=== PATIENT | male | born 1960 | race Caucasian/White ===

== ENCOUNTER 2020-04-13 18:31 | Outpatient (REF) | payer BC, SELFPAY ==
[2020-04-13 21:30] LABS: Hemoglobin A1C 5.3 % (<5.7)
[2020-04-13 21:34] LABS: ALT 35 U/L (16-63); AST 20 U/L (15-37); Alkaline Phosphatase 49 U/L (46-116); Anion Gap 10.4 mmol/L (3-11); BUN 20 mg/dL (7-18); Bilirubin, Total 1.2 mg/dL (0.2-1.0); CO2 27.6 mmol/L (21.0-32.0); Calcium 8.9 mg/dL (8.5-10.1); Calculated LDL 170 mg/dL (<100); Chloride 105 mmol/L (98-107); Cholesterol 257 mg/dL (<200); Glucose 96 mg/dL (74-106); HDL Cholesterol 56 mg/dL (40-60); Potassium 3.9 mmol/L (3.5-5.1); Sodium 143 mmol/L (136-145); Total Protein 7.3 g/dL (6.4-8.2); Triglyceride 157 mg/dL (<150)
[2020-04-14 17:15] LABS: PSA, Screening 2.5 ng/mL (0.0-3.5)
== END 2020-04-13 18:32 | disposition home or self-care (01) ==
LOC: NCHCN 18:31
PROVIDERS: PCP Family Medicine; Visit Provider Nurse Practitioner Family
DX: Z00.00 Encounter for general adult medical examination without abnormal findings (principal); R39.11 Hesitancy of micturition; Z12.5 Encounter for screening for malignant neoplasm of prostate; Z13.1 Encounter for screening for diabetes mellitus; Z13.220 Encounter for screening for lipoid disorders; I49.3 Ventricular premature depolarization
CPT/HCPCS: 80053; 80061; 84153; 83036

== ENCOUNTER 2021-09-03 16:16 | Outpatient (REF) | payer BC, SELFPAY ==
[2021-09-03 20:57] LABS: ALT 28 U/L (16-63); AST 21 U/L (15-37); Alkaline Phosphatase 65 U/L (46-116); Anion Gap 11.4 mmol/L (3-11); BUN 19 mg/dL (7-18); Bilirubin, Total 1.4 mg/dL (0.2-1.0); CO2 27.6 mmol/L (21.0-32.0); Calcium 8.6 mg/dL (8.5-10.1); Calculated LDL 146 mg/dL (<100); Chloride 104 mmol/L (98-107); Cholesterol 230 mg/dL (<200); Glucose 93 mg/dL (74-106); HDL Cholesterol 55 mg/dL (40-60); Sodium 143 mmol/L (136-145); Total Protein 7.1 g/dL (6.4-8.2); Triglyceride 147 mg/dL (<150)
[2021-09-04 19:00] LABS: PSA, Screening 2.5 ng/mL (<=3.5)
== END 2021-09-03 16:17 | disposition home or self-care (01) ==
LOC: NCHCN 16:16
PROVIDERS: PCP Family Medicine; Visit Provider Nurse Practitioner Family
DX: Z00.00 Encounter for general adult medical examination without abnormal findings (principal); E78.5 Hyperlipidemia, unspecified; Z12.5 Encounter for screening for malignant neoplasm of prostate
CPT/HCPCS: 80053; 80061; 84153

== ENCOUNTER 2022-09-10 16:03 | Outpatient (REF) | payer BC, SELFPAY ==
[2022-09-10 15:00] LABS: Abs Immature Grans 0.03 10^3/uL (0.0-0.06); Absolute Basophil Count 0.04 10^3/uL (0.0-0.2); Absolute Eosinophil Count 0.15 10^3/uL (0.0-0.7); Absolute Lymphocyte Count 1.09 10^3/uL (1.2-3.4); Absolute Monocyte Count 0.35 10^3/uL (0.1-0.8); Absolute Neutrophil Count 2.76 10^3/uL (1.2-6.7); Basophils % 0.9; Eosinophils % 3.4; HCT 44.2 % (40.0-50.0); HGB 15.5 g/dL (13.5-17.5); Immature Grans % 0.7; Lymphocytes % 24.7; MCH 31.4 pg (27.0-33.0); MCHC 35.1 % (32.0-36.0); MCV 90 fL (80-95); MPV 9.1 fL (8.0-11.0); Monocytes % 7.9; Neutrophils % 62.4; Platelet Count 196 10^3/uL (130-400); RBC 4.94 10^6/uL (4.36-5.78); RDW 12.2 % (11.8-14.1); RDW-SD 39.8 fL; WBC 4.42 10^3/uL (4.4-10.8)
[2022-09-10 15:21] LABS: Anion Gap 6.4 mmol/L (3-11); BUN 16 mg/dL (7-18); CO2 27.6 mmol/L (21.0-32.0); CREATININE 1.1 mg/dL (0.70-1.30); Calcium 8.6 mg/dL (8.5-10.1); Calculated LDL 133 mg/dL (<100); Chloride 107 mmol/L (98-107); Cholesterol 199 mg/dL (<200); Estimated GFR 77.33 (mL/min/1.73m2); Glucose 82 mg/dL (74-106); HDL Cholesterol 52 mg/dL (40-60); Sodium 141 mmol/L (136-145); TSH (W/Ref FT4) 3.23 uIU/mL (0.36-3.74); Triglyceride 71 mg/dL (<150)
== END 2022-09-10 16:04 | disposition home or self-care (01) ==
LOC: NCHCN 16:03
PROVIDERS: PCP Family Medicine; Visit Provider Family Medicine
DX: Z00.00 Encounter for general adult medical examination without abnormal findings (principal); I49.3 Ventricular premature depolarization; R00.2 Palpitations; E78.5 Hyperlipidemia, unspecified
CPT/HCPCS: 80048; 80061; 84443; 85025

== ENCOUNTER 2022-09-17 16:21 | Outpatient (REF) | payer BC, SELFPAY ==
[2022-09-18 18:53] LABS: PSA, Screening 2.4 ng/mL (<=3.5)
== END 2022-09-17 16:22 | disposition home or self-care (01) ==
LOC: NCHCN 16:21
PROVIDERS: PCP Family Medicine; Visit Provider Family Medicine
DX: Z12.5 Encounter for screening for malignant neoplasm of prostate (principal)
CPT/HCPCS: 84153

== ENCOUNTER 2023-12-04 17:30 | Outpatient (REF) | payer BC, SELFPAY ==
--- OUTSIDE RECORDS SUMMARY | 2023-12-04 17:51 | XMS_ITS ---
Author Organization Unknown Address [address] [place] [phone] Phone Care Team Providers Care Manager Adult Name Role Phone ELI JACKSON Attending Unavailable Social History Type Status Start Date End Date Code Code Syst em Smoking History Never smoker (Never Smoked) [id number] SNOMED CT Sex Male Hospital Discharge Instructions Should you have any questions prior to discharge, please contact a member of your healthcare team. If you have left the hospital and have any questions, please contact your primary care physician. Reason For Referral No Data Found Plan of Treatment No Data Found Encounters Encounter Diagnosis Start Date Code Code Sys tem Pain in right hip 09/20/2022 SNOMED-CT Personal Care Team Section Performer Name Performer Role Active Date Inactive Da te
--- OUTSIDE RECORDS SUMMARY | 2023-12-04 17:51 | XMS_ITS ---
Author Organization Unknown Address [address] [place] [phone] Phone Care Team Providers Care Sql Server Developer Name Role Phone MALLORY HADDAD Attending Unavailable RED CARUSO Primary Unavailable Results XR SHOULDER 2V OR MORE RT* - Completed: 03/11/2022 11:57 LOINC: RADIOLOGY [place], [place] [address] PACS DIE TROUBLE SHOOTER REPORT Patient Name: MAGY KISERFILIPE Buckley MRN: Sex: : Age: [id number] M [id number] Account: Accession: Admit: StayType: [id number] 03/11/2022 CLINIC Ordered: Order ID: Submitted: Ordering Provider: 03/11/2022 11:17 [id number] EMO BOO TEJADA Completed: Technologist: Resulted: 03/11/2022 11:57 EMO 03/11/2022 18:37 Study Description: XR SHOULDER 2V OR MORE RT* Study Reason: Pain 2D digital imaging was performed. COMPARISON: No exams were available for comparison ? FINDINGS: There is no evidence of fracture nor dislocation and there are no abnormal soft tissue calcifications. Moderate degenerative changes are noted in the glenohumeral joint. No os acromiale. Bone density normal. No osseous lesions. IMPRESSION: Some degenerative change in the glenohumeral joint evident. Report Digitally Signed by Iain Collins on 03/11/2022 06:37 PM EST Social History Type Status Start Date End Date Code Code Syst em Smoking History Never smoker (Never Smoked) [id number] SNOMED CT Sex Male Hospital Discharge Instructions Should you have any questions prior to discharge, please contact a member of your healthcare team. If you have left the hospital and have any questions, please contact your primary care physician. Reason For Referral No Data Found Plan of Treatment No Data Found Encounters Encounter Diagnosis Start Date Code Code Sys tem 03/11/2022 [id number] SNOMED-CT Personal Care Team Section Performer Name Performer Role Active Date Inactive Da te
--- OUTSIDE RECORDS SUMMARY | 2023-12-04 17:51 | XMS_ITS ---
Author Organization Unknown Address [address] [place] [phone] Phone Care Team Providers Care Family And Marriage Counsellor Name Role Phone MALLORY BOO Attending Unavailable RED CARUSO Primary Unavailable Social History Type Status Start Date End Date Code Code Syst em Smoking History Never smoker (Never Smoked) [id number] SNOMED CT Sex Male Hospital Discharge Instructions Should you have any questions prior to discharge, please contact a member of your healthcare team. If you have left the hospital and have any questions, please contact your primary care physician. Reason For Referral No Data Found Plan of Treatment No Data Found Encounters Encounter Diagnosis Start Date Code Code Sys tem Pain in right shoulder 04/03/2022 SNOME D-CT Personal Care Team Section Performer Name Performer Role Active Date Inactive Da te
--- OUTSIDE RECORDS SUMMARY | 2023-12-04 17:51 | XMS_ITS ---
Author Organization Unknown Address [address] [place] [phone] Phone Care Team Providers Care Aoc Operations Intelligence Officer Name Role Phone VILLA Hernandez Attending Unavailable RED CARUSO Primary Unavailable Social History Type Status Start Date End Date Code Code Syst em Smoking History Never smoker (Never Smoked) [id number] SNOMED CT Sex Male Hospital Discharge Instructions Should you have any questions prior to discharge, please contact a member of your healthcare team. If you have left the hospital and have any questions, please contact your primary care physician. Reason For Referral No Data Found Procedures Procedure Name Date Status Code Code Syste m External EKG Recording Up To 48 Hours, Continuous; Recording 03/19/2023 completed 45687 CPT External EKG Recording Up To 48 Hours, Continuous; Scanning Analysis With Report 03/19/2023 completed 62204 CPT Xtrnl ECG Continuous Rhythm w/I&R Up To 48 Hrs 03/19/2023 completed 84299 CPT Plan of Treatment No Data Found Encounters Encounter Diagnosis Start Date Code Code Sys tem Palpitations 03/19/2023 SNOMED-CT Personal Care Team Section Performer Name Performer Role Active Date Inactive Da te
--- OUTSIDE RECORDS SUMMARY | 2023-12-04 17:51 | XMS_ITS | Encounter Summary ---
Author Organization [facility] Address [address] [place] [id number] Care Team Providers Care Casino Accountant Name Role Phone Mallika Barillas APRN Primary Care Provider [phone] Reason for Referral * Radiology Services (Routine/Next Available) - Authorization Not Required Specialty Diagnoses / Procedures Referred By Contac t Referred To Contact Diagnoses Hyperlipidemia Procedures CT CARDIAC CALCIUM SCORE Mallika Barillas APRN [address] [place] [address] [facility] Referral ID Status Reason Start Date Expiration Date Visits Requested Visits Authorized [id number] Authorization Not Required 09/25/2021 1 1 Reason for Visit * Radiology Services (Routine/Next Available) - Authorization Not Required Specialty Diagnoses / Procedures Referred By Contac parth Referred To Contact Diagnoses Hyperlipidemia Procedures CT CARDIAC CALCIUM SCORE Mallika Barillas APRN [address] [place] [address] [facility] Referral ID Status Reason Start Date Expiration Date Visits Requested Visits Authorized [id number] Authorization Not Required 09/25/2021 1 1 Encounter Details Date Type Department Care Team (Latest Contact Info) Description 10/25/2021 11:12 EDT - 10/25/2021 23:59 EDT Hospital [facility]counter [facility] [place] [address] [place] [address] Hyperlipidemia Discharge Disposition: Home or Self Care Social History Tobacco Use Types Packs/Day Years Used Date Smoking Tobacco: Never Smokeless Tobacco: Never Sex and Gender Information Value Date Recorded Sex Assigned at Not on file Gender Identity Male 10/22/2021 13:27 EDT Sexual Orientation Not on file documented as of this encounter Functional Status Functional Status Response Date of Assess ment Because of a physical, menta l, or emotional condition, does this person have difficulty doing errands alone such as visiting a doctor's office or shopping? No 06/02/2015 Cognitive Status Response Date of Assessm ent Because of a physical, menta l, or emotional condition, does this person have serious difficulty concentrating, remembering, or making decisions? No 06/02/2015 documented as of this encounter Discharge Disposition Disposition Code Departure Means Destination Home or Self Care documented in this encounter Plan of Treatment Not on file documented as of this encounter Procedures Procedure Name Priority Date/Time Associated Diagnosis Comments CT CARDIAC CALCIUM SCORE Routine 10/25/2021 11:44 EDT Hyperlipidemia documented in this encounter Results * CT CARDIAC CALCIUM SCORE (10/25/2021 11:44 EDT) Anatomical Region Laterality Modality Computed Tomogra phy 10/25/2021 12:1 8 EDT Impressions 10/25/2021 12:18 EDT 1. ??There is a small amount of calcified coronary plaque. The overall coronary artery calcium score is 32. Coronary artery calcification is a specific marker for coronary atherosclerosis. ??The amount of calcification correlates with the severity of coronary atherosclerosis. A score of 0 implies low likelihood of coronary obstruction but cannot totally exclude the presence of atherosclerosis. A high score indicates a significant plaque burden and relative risk for future cardiovascular events. It should be understood that calcification is not site specific for stenosis but rather indicates the extent of atherosclerosis in the coronary arteries overall. Narrative 10/25/2021 12:[address] CARDIAC CALCIUM SCORE ??10/25/2021 11:30 AM Clinical History/Comments: CAD screening, low CAD risk Technique: Acquisition was performed with prospective cardiac triggering in axial mode with 3mm contiguous slices from the yeyo to the inferior surface of the heart. ??Vessel analysis was performed on a dedicated 3D console using Agatston 130 tables for risk stratification. Exam description: CT of the heart without contrast with quantitative evaluation of coronary calcium. Comparison: No relevant imaging available on PACS for comparison at the time of this dictation. Findings: The calcium score is distributed as following: Left main: 0 Left anterior descendin Right coronary artery: 0 Left circumflex coronary artery: 23 The patient has a total calcium score of 32 . Agatston Score Reference Table Agatston Score ?Risk 0 ? very low 1-99 ?mildly increased 100-299 ?moderately increased >300 ? moderately to severely increased Deborah HS, Urszula MJ, Masood EA, Elayne RC, Kacey M, Rin J and Frandy L. ??CAC-DRS: Coronary Artery Calcium Data and Reporting System. ??An expert consensus document of the Society of Cardiovascular Computed Tomography (SCCT). ??J Cardiovasc Comput Tomogr. June-Jul 2017:12(3): 185-191. The percentile of people with a lower calcium score for a 59 year old male ??for the following ethnicities is: 54% This percentile is in comparison to a group of patients with the same age, gender and race/ethnicity who are free of clinical cardiovascular disease and treated diabetes. ??The lower the calcium score and percentile rank, the less likely the patient will have cardiovascular disease compared to others with the same age, gender and ethnicity. ??These results come from ROBLERO, a prospective cohort study of the prevalence, risk factors and progression of subclinical cardiovascular disease, which was performed on the [place] population. ROBLERO database calculator is based on the following reference: Blanca Abbott, Narciso Quinteros, Herber Ritter, Ya Galloway and Nael Renteria Distribution of Coronary Artery Calcium by Race, Gender, and Age: Results from the Multi-Ethnic Study of Atherosclerosis (ROBLERO), Circulation 2006 Additional findings: * ??None. Procedure Note Kiet Fernandez MD - 10/25/2021 CT CARDIAC CALCIUM SCORE 10/25/2021 11:30 AM Clinical History/Comments: CAD screening, low CAD risk Technique: Acquisition was performed with prospective cardiac triggering in axialmode with 3mm contiguous slices from the yeyo to the inferior surface ofthe heart. Vessel analysis was performed on a dedicated 3D console usingAgatston 130 tables for risk stratification. Exam description: CT of the heart without contrast with quantitativeevaluation of coronary calcium. Comparison: No relevant imaging available on PACS for comparison at the time of thisdictation. Findings: The calcium score is distributed as following: Left main: 0 Left anterior descendin Right coronary artery: 0 Left circumflex coronary artery: 23 The patient has a total calcium score of 32 . Agatston Score Reference Table Agatston Score Risk 0 very low 1-99 mildly increased 100-299 moderately increased >300 moderately to severely increased Deborah HS, Urszula MJ, Masood EA, Elayne RC, Kacey M, Rin PeñaCAC- DRS: Coronary Artery Calcium Data and Reporting System. An expertconsensus document of the Society of Cardiovascular Computed Tomography(SCCT). J Cardiovasc Comput Tomogr. June-Jul 2017:12(3): 185-191. The percentile of people with a lower calcium score for a 59 year old malefor the following ethnicities is: 54% This percentile is in comparison to a group of patients with the same age,gender and race/ethnicity who are free of clinical cardiovascular diseaseand treated diabetes. The lower the calcium score and percentile rank,the less likely the patient will have cardiovascular disease compared toothers with the same age, gender and ethnicity. These results come fromMESA, a prospective cohort study of the prevalence, risk factors andprogression of subclinical cardiovascular disease, which was performed onthe [facility] population. ROBLERO database calculator is based on the following reference: Blanca Abbott, Narciso Quinteros, Herber Ritter, Ya Galloway and Denise. [place] Distribution of Coronary Artery Calcium by Race, Gender, andAge: Results from the Multi-Ethnic Study of Atherosclerosis (ROBLERO),Circulation 2006 Additional findings: * None. IMPRESSION 1. There is a small amount of calcified coronary plaque. The overallcoronary artery calcium score is 32. Coronary artery calcification is a specific marker for coronaryatherosclerosis. The amount of calcification correlates with the severityof coronary atherosclerosis. A score of 0 implies low likelihood ofcoronary obstruction but cannot totally exclude the presence ofatherosclerosis. A high score indicates a significant plaque burden andrelative risk for future cardiovascular events. It should be understoodthat calcification is not site specific for stenosis but rather indicatesthe extent of atherosclerosis in the coronary arteries overall. Mallika Barillas APRN IMG CT ORDERABLES documented in this encounter Visit Diagnoses Diagnosis Hyperlipidemia Other and unspecified hyperlipidemia documented in this encounter Care Teams Casino Accountant Relationship Specialty Start Date End Date Mallika Barillas APRN [address] [place] [phone] PCP - General Family Medicine - Primary Care 10/22/21 documented as of this encounter
--- OUTSIDE RECORDS SUMMARY | 2023-12-04 17:51 | XMS_ITS | Continuity of Care Document ---
Author Organization [place] - [facility], [facility] Address [address] [place] [address] Assessment No assessment recorded. Plan of Treatment Reminders Order Date Submit Date Provider Last Modified By Organization Details Last Modified Time Details Appointments FASTING LABS 2023 07:40A M [place] [facility] Staff Not available Not available Not available Annual Wellness Exam 40 2023 01:00P M RENETTA ELI Not available Not available Not available Lab lipid panel, serum 2023 [facility] (Registration ), [address] [place] [address] [place], [address], 12/04/2023 07:55:18 CMP, serum or plasma 2023 [facility] (Registration ), [address] [place] [address] [place], [address], 12/04/2023 07:55:18 PSA, serum or plasma 2023 [facility] (Registration ), [address] [place] [address] [place], [address], 12/04/2023 08:00:57 Referral None recorded . Procedures None recorded . Surgeries None recorded . Imaging None recorded . Medication Orders None recorded . Patient TargetsNo targets recorded. Patient InstructionsNo instructions recorded. Reason for Referral None Reported. Results Created Date Observation Date Name Description Value Unit Range Abnormal Flag Note LastModifiedBy Organization Detail LastModifiedTime 11/10/19 24 09/05/2022 imagi ng/di agnos tic resul t No observ ation record ed. [email or web address] Not Available 11/09 00:51:36 11/10/19 24 03/11/2022 XR, shoul judd, 2 or more view No observ ation record ed. [email or web address] Not Available 11/09 00:52:15 11/10/19 24 10/25/2021 imagi ng/di agnos tic resul t No observ ation record ed. [email or web address] Not Available 11/09 00:52:16 11/10/19 24 07/10/2020 imagi ng/di agnos tic resul t No observ ation record ed. [email or web address] Not Available 11/09 00:52:20 11/10/19 24 01/03/2022 imagi ng/di agnos tic resul t No observ ation record ed. [email or web address] Not Available 11/09 00:52:21 Result Notes None recorded. Problems Name Problem SNOMED Code Status Onset Date Resolution Date Notes Provider Name and Address Organization Details Recorded Time Neck pain 71384111 Completed 201504/30/2015 03/01/19 16 - Comments only - Cynthia Vazquez PORTER USED CAR LOT - ice, or heat, IB; cspine xray and f/u per results Problem Code: M54.2; Problem Code Type: ICD-10; Not Available [facility] 3 04:40:32 Neck pain 21302373 Active 2015 Problem Code: M54.2; Problem Code Type: ICD-10; Not Available [facility] 3 04:40:32 Screenin g for malignan t neoplasm of colon Completed 202005/01/2020 Problem Code: Z12.11; Problem Code Type: ICD-10; Not Available [facility] 3 04:40:32 Adult health examinat ion Active 202009/04/19 22 - Comments only - Mallika Barillas APRN - #[facility], adult. -CRC screenin 08/2020 - TAs, 3yr recall due 08/2023 -Prostat e Ca Screen: PSA 03/2020 2.5, SDM w/ pt who would like recheck today -AAA screen: not indicate d, lifetime non-smok er -lung ca screen: not indicate d, lifetime non-smok er -lipid screenin 03/2020: Total 257, HDL 56, LDL 170, TG 157, recheck today -ASCVD 10yr risk: 8.3%, will recalc w/ today's lipids -DM screenin g: A1c 5.3% 03/2020 -HIV/HCV /STI screenin g: not reviewed today -Depress ion Screen: PHQ2 of 0 today -IZ: UTD -Vision: no concerns -Dental: goes q6mo -Adv Dir: not reviewed today -Parking Analyst ed on healthy diet, exercise , and avoidanc e of etoh/ill icits. -RTC in 12mo, sooner prn Problem Code: Z00.00; Problem Code Type: ICD-10; Not Available [facility] 3 04:40:33 Hip pain 90836503 Active 202009/04/19 22 - Comments only - Mallika Eran CONCRETE PRODUCTS DISPATCHER - bilat, R>L -xray 1yr ago showed mild-mod erate degenera tive changes. No improvem ent w/ PT -referra l to ortho placed today Problem Code: M25.559; Problem Code Type: ICD-10; Not Available [facility] 3 04:40:33 Benign paroxysm al position al vertigo 711094844 Active 202004/13/19 21 - Comments only - Mallika Eran CONCRETE PRODUCTS DISPATCHER - -referra l to PT placed today Problem Code: H81.10; Problem Code Type: ICD-10; Not Available [facility] 3 04:40:33 Ventricu lar prematur e complex 850383249 Active 202004/13/19 21 - Comments only - Mallika Eran CONCRETE PRODUCTS DISPATCHER - -discuss ed benign nature of PVCs, could get Zip Patch if pt is concerne d. Problem Code: I49.3; Problem Code Type: ICD-10; Not Available [facility] 3 04:40:33 Delay when starting to pass urine 0125602 Active 202009/04/19 22 - Comments only - Mallika Eran CONCRETE PRODUCTS DISPATCHER - -recheck PSA today. Did discuss medicati on but he was not inclined to start a medicati on at this time -f/u pending results of PSA Problem Code: R39.11; Problem Code Type: ICD-10; Not Available [facility] 3 04:40:33 History of polyp of colon 027990289 Active 2020 Problem Code: Z86.010; Problem Code Type: ICD-10; Not Available [facility] 3 04:40:33 Pain of right shoulder joint 40639698902 784940 Active 202109/04/19 22 - Comments only - Mallika Barillas CONCRETE PRODUCTS DISPATCHER - -suspect impingem ent syndrome -referra l for PT placed today -f/u if no improvem ent or if sx worsen Problem Code: M25.511; Problem Code Type: ICD-10; Not Available [facility] 3 04:40:33 Hyperlip idemia 25442442 Active 202111/20/19 22 - Comments only - Mallika Barillas CONCRETE PRODUCTS DISPATCHER - -lipids 08/2021: Total 230, HDL 55, LDL 146, TG 147 -ASCVD 10yr risk 7.6% -Coronar y Calcium score of 32: mildly increase d risk -Discuss ed the risk and benefits of starting statin therapy, patient prefers to focus on diet for the next year or 2 and then revisit the discussi on. -Recheck lipids prior to annual exam next August. Problem Code: E78.5; Problem Code Type: ICD-10; Not Available [facility] 3 04:40:33 Screenin g for malignan t neoplasm of prostate Completed 202110/03/2021 Problem Code: Z12.5; Problem Code Type: ICD-10; Not Available [facility] 3 04:40:33 Chronic cough 00767410 Active 202109/04/19 22 - Comments only - Mallika Barillas CONCRETE PRODUCTS DISPATCHER - -low-ris k for lung malignan cy as pt is a lifetime non-smok er. I did offer a CXR today but he declined , will call if sx worsen/p ersist Problem Code: R05.3; Problem Code Type: ICD-10; Not Available [facility] 3 04:40:34 Palpitat ions 86660543 Active 2022 Problem Code: R00.2; Problem Code Type: ICD-10; Not Available [facility] 3 04:40:34 Screenin g for malignan t neoplasm of prostate Completed 202210/16/2022 Problem Code: Z12.5; Problem Code Type: ICD-10; Not Available [facility] 3 04:40:34 Viral screenin g Completed 201904/13/2020 Problem Code: Z11.59; Problem Code Type: ICD-10; Not Available [facility] 3 04:40:34 Disorder of skin and/or subcutan eous tissue 16193298 Completed 201504/13/2020 Problem Code: L98.9; Problem Code Type: ICD-10; Not Available [facility] 3 04:40:34 Acute upper respirat ory infectio n 10598889 Completed 201704/13/2020 Problem Code: J06.9; Problem Code Type: ICD-10; Not Available [facility] 3 04:40:34 Pain of left knee joint 07014898166 4107 Completed 202009/03/2021 Problem Code: M25.562; Problem Code Type: ICD-10; Not Available [facility] 3 04:40:34 Problem Notes None recorded. Medical Equipment None Reported. Medications Name Sig Start Date Stop Date Status Note LastModified by Organization Details LastModified Time chloroquine 500 mg tablet 1 weekly 11/01 completed Not Available Not Available Not Available hydrocodone 5 mg-acetaminop hen 325 mg tablet TAKE 1 TABLET BY MOUTH EVERY 6 HOURS active Not Available Not Available No t Available amoxicillin 500 mg tablet TAKE 1 TABLET BY MOUTH EVERY 8 HOURS UNTIL GONE active Not Available Not Available No t Available Cipro 500 mg tablet 1 bid 11/01 completed Not Available Not Available Not Available Transderm-Sco p 1 mg over [address] patch behind ear hours prior to travel, change q 3 days prn 04/13 completed Not Available Not Available Not Available SF 5000 Plus 1.1 % dental cream Use as directe d. 2018 active Not Available Not Available Not Avai lable rosuvastatin 10 mg tablet TAKE 1 TABLET BY MOUTH EVERY DAY active Not Available Not Available No t Available chlorhexidine gluconate 0.12 % mouthwash active Not Available Not Available No t Available Vitals None Recorded Social History None recorded. Functional Status None recorded. Mental Status None recorded. Family History Relationship Description Onset Age of this Age Resolved Age Notes LastModified by Organization Details LastModified Time Mother Family history of breast cancer 1 gene mutation [email or web address] Not available 2022 03:52:25 Notes:*Problem: Mother: Aliv e breast cancer Father: Alive HTN, heart dz (CAD s/p stents), PE Sister: hyperlpidemia -- LDL in the 200s. Family History of: Hypertension: Yes Hyperlipidemia: No Coronary heart disease: No Diabetes mellitus: No Breast cancer: Yes Colorectal cancer: No polyps Prostate cancer: No Alcoholism: No Mental illness: No Medical History No medical history recorded. Immunizations Vaccine Type Date Status Provider Name and Address Organization Details Recorded Time Td (adult), 2 Lf tetanus toxoid, preservative free, adsorbed 07/23/2019 completed Not Available [facility] 01/03/2023 04:53:25 Tdap 03/01/2010 completed Not Available [facility] 04:53:25 zoster recombinant 04/13/2020 completed Not Available [facility] 01/03/2023 04:53:25 zoster recombinant 07/10/2020 completed Not Available [facility] 01/03/2023 04:53:25 Hep A, unspecified formulation 03/01/2010 completed Not Available [facility] 01/03/2023 04:53:25 Hep A, unspecified formulation 08/31/2010 completed Not Available [facility] 01/03/2023 04:53:25 influenza, unspecified formulation 04/12/2013 completed Not Available [facility] 01/03/2023 04:53:26 influenza, unspecified formulation 12/18/2019 completed Not Available [facility] 01/03/2023 04:53:26 Past Encounters Encounter ID Performer Location Encounter Start Date Encounter Closed Date Diagnosis/Indication Diagnosis SNOMED-CT Code Diagnosis ICD10 Code [id number] DONA RUFF, RN [facility] [address] [place] [address] 12/04/2023 07:40:14 12/04/2023 08:27:07 Benign prostatic hyperplasia 052519451 N40.0 Hyperlipidemia 92545820 E78.5 Adult heal th examination 846387257 Z00.00 Health Concerns Section Related Observation LastModified by Organization Detai ls LastModified Time None Recorded Concern Status LastModified by Organization Details LastModified Time None Recorded Payers Encounter Date Sequence Insurance Name Policy Number Policy Wong Covered Member ID Wong Member ID Guarantor Name 12/04/2023 1 [place] [facility] (POS) Madhav Sainz [id number] Madhav Sainz
--- OUTSIDE RECORDS SUMMARY | 2023-12-04 17:51 | XMS_ITS | Encounter Summary ---
Author Organization [facility] Address [address] [place] [address] Care Team Providers Care Jewelry Department Supervisor Name Role Phone Eliza Thomson MD Primary Care Provider [phone] Encounter Details Date Type Department Care Team (Latest Contact Info) Description 05/26/2015 10:01 EDT - 05/26/2015 10:08 EDT Hospital Encounter [facility] [address] [place] [address] Brandee Montana, CARTRIDGE FILLER [address] [place] [address] Eliza Combs DC [address] [facility] [address] [place], [place] [address] Discharge Disposition: Home or Self Care Social History Tobacco Use Types Packs/Day Years Used Date Smoking Tobacco: Never Assessed Sex and Gender Information Value Date Recorded Sex Assigned at Not on file Gender Identity Male 10/22/2021 13:27 EDT Sexual Orientation Not on file documented as of this encounter Discharge Diagnoses Diagnosis D48.5 Neoplasm of uncertain behavior of skin-D48.5[ICD-10-CM] documented in this encounter Discharge Disposition Disposition Code Departure Means Destination Home or Self Care documented in this encounter Plan of Treatment Not on file documented as of this encounter Visit Diagnoses Not on filedocumented in this encounter Care Teams Jewelry Department Supervisor Relationship Specialty Start Date End Date Eliza Thomson MD [address] [place] [phone] PCP - General 05/05/15 05/31/15 documented as of this encounter
--- OUTSIDE RECORDS SUMMARY | 2023-12-04 17:51 | XMS_ITS | Clinical Summary ---
Author Organization [facility] Address [address] [place] [address] Care Team Providers Care Outreach Representative Name Role Phone EranMallika Felisha ELMORE Primary Care Provider [phone] Allergies No known active allergies Medications No known medications Active Problems Problem Noted Date Diagnosed Date Neck pain 06/02/2015 Encounters Date Type Department Care Team Description 12/04/2023 Lab Requisition [facility] Pathology & Laboratory Medicine - [address] [address] Outr Resulting Lab, Provider from Last 3 Months Social History Tobacco Use Types Packs/Day Years Used Date Smoking Tobacco: Never Smokeless Tobacco: Never Tobacco Cessation:Counseling Given: No Sex and Gender Information Value Date Recorded Sex Assigned at Not on file Gender Identity Male 10/22/2021 13:27 EDT Sexual Orientation Not on file Obstetrics History Last Filed Vital Signs Vital Sign Reading Time Taken Comments Blood Pressure - - Pulse - - Temperature - - Respiratory Rate - - Oxygen Saturation - - Inhaled Oxygen Concentration - - Weight 72.6 kg (160 lb) 06/02/2015 1248 EDT per patient Height 172.7 cm (5' 8) 06/02/2015 1248 EDT per patient Body Mass Index 24.33 06/02/2015 1248 EDT Plan of Treatment Health Maintenance Due Date Last Done Comments Hepatitis C Screen 1960 RSV Immunization ( o r 60+ Years) (1 - 1-dose 60+ series) 2022 COVID-19 Vaccine (2022-24 season) 2022 [place] [address] Sainz, Madhav O Personal/Famil y Self [address] [place] [address] [place] [address] Sainz, Madhav O Personal/Famil y Self [address] [place] [address] [place] [address] Sainz, Madhav O Personal/Famil y Self [address] [place] [address] [place] [address] Sainz, Madhav O Personal/Famil y Self [address] [place] [address] [place] [address] Sainz, Madhav O Personal/Famil y Self [address] [place] [address] [place] [address] Sainz, Madhav O Personal/Famil y Self [address] [place] [address] [place] [address] Sainz, Madhav O Personal/Famil y Self [address] [place] [address] [place] [address] Care Teams Outreach Representative Relationship Specialty Start Date End Date Mallika Barillas APRN [address] [place] [phone] PCP - General Family Medicine - Primary Care 10/22/21
--- OUTSIDE RECORDS SUMMARY | 2023-12-04 17:51 | XMS_ITS | Referral Summary ---
Author Organization [facility] Address [address] [place] [address] Care Team Providers Care Solar Power Installer Name Role Phone Janeth Barillasily Felisha ELMORE Primary Care Provider Encounters Date Type Department Care Team Description 12/04/2023 Lab Requisition [facility] Pathology & Laboratory Medicine - [address] [address] Outr Resulting Lab, Provider from Last 3 Months Allergies No known active allergies Medications No known medications Active Problems Problem Noted Date Diagnosed Date Neck pain 06/02/2015 Social History Tobacco Use Types Packs/Day Years Used Date Smoking Tobacco: Never Smokeless Tobacco: Never Tobacco Cessation:Counseling Given: No Sex and Gender Information Value Date Recorded Sex Assigned at Not on file Gender Identity Male 10/22/2021 13:27 EDT Sexual Orientation Not on file Last Filed Vital Signs Vital Sign Reading Time Taken Comments Blood Pressure - - Pulse - - Temperature - - Respiratory Rate - - Oxygen Saturation - - Inhaled Oxygen Concentration - - Weight 72.6 kg (160 lb) 06/02/2015 1248 EDT per patient Height 172.7 cm (5' 8) 06/02/2015 1248 EDT per patient Body Mass Index 24.33 06/02/2015 1248 EDT Functional Status Functional Status Response Date of [...] concentrating, remembering, or making decisions? No 06/02/2015 Plan of [place] [address] Sainz, Madhav O Personal/Famil y Self [address] [place] [address] [place] [address] Sainz, Madhav O Personal/Famil y Self [address] [place] [address] [place] [address] Sainz, Madhav O Personal/Famil y Self [address] [place] [address] [place] [address] Sainz, Madhav O Personal/Famil y Self [address] [place] [address] [place] [address] Sainz, Madhav O Personal/Famil y Self 1960 [address] [facility] [place] [address] Sainz, Madhav O Personal/Famil y Self [address] [place] [address] [place] [address] Sainz, Madhav O Personal/Famil y Self [address] [place] [address] [place] [address] Care Teams Solar Power Installer Relationship Specialty Start Date End Date Mallika Barillas APRN [address] [place] [phone] PCP - General Family Medicine - Primary Care 10/22/21
--- OUTSIDE RECORDS SUMMARY | 2023-12-04 17:51 | XMS_ITS | Encounter Summary ---
Author Organization [facility] Address [address] [place] [address] Care Team Providers Care Warble Saw Operator Name Role Phone Beny Perea MD Primary Care Provider [phone] Mallika Barillas APRN Primary Care Provider [phone] Encounter Details Date Type Department Care Team (Late st Contact Info) Description 04/14/2020 Lab Requisition [facility] Pathology & Laboratory Medicine - [address] [address] Outr Resulting Lab, Provider Social History Tobacco Use Types Packs/Day Years [...] No 06/02/2015 documented as of this encounter Plan of Treatment Not on file documented as of this encounter Procedures Procedure Name Priority Date/Time Associated Diagnosis Comments PSA TOTAL, DIAGNOSTIC Routine 04/13/2020 16:30 EST documented in this encounter Results * PSA TOTAL, DIAGNOSTIC (04/13/2020 16:30 EST) PSA 2.5 0.0 - 3.5 ng/mL 04/14/2020 17:10 EST [facility] Blood VENOUS BLOOD / Unknown 04/13/2020 16:30 EST 04/14/2020 15:43 EST Narrative [facility] - 04/14/2020 17:10 EST NOTE: Serum PSA concentration should not be interpreted as absolute evidence for the presence or absence of malignant disease. Assayed on Siemens [employer] Crowd[employer]aur XPT using chemiluminescent technology.??Values obtained by using different assay methods cannot be used interchangeably. Provider Outr Resulting Lab CHEMISTRY & BLOOD GAS ORDERABLES [facility] [address] [place] [address] documented in this encounter Visit Diagnoses Not on filedocumented in this encounter Care Teams Warble Saw Operator Relationship Specialty Start Date End Date eBny Perea MD PCP - General 06/01/15 10/21/21 Mallika Barillas APRN [address] [place] [phone] PCP - General Family Medicine - Primary Care 10/22/21 documented as of this encounter
--- OUTSIDE RECORDS SUMMARY | 2023-12-04 17:51 | XMS_ITS | Encounter Summary ---
Author Organization [facility] Address [address] [place] [address] Care Team Providers Care Plodder Operator Name Role Phone Eliza Thomson MD Primary Care Provider [phone] Encounter Details Date Type Department Care Team (Late st Contact Info) Description 05/23/2015 Results Only Imaging [facility] [phone] Unknown, Provider, Social History Tobacco Use Types Packs/Day Years Used Date Smoking Tobacco: Never Assessed Sex and Gender Information Value Date Recorded Sex Assigned at Not on file Gender Identity Male 10/22/2021 13:27 EDT Sexual Orientation Not on file documented as of this encounter Plan of Treatment Pending Results Name Type Priority Associated Diagnoses Date /Time OUTSIDE IMAGES - OTHER NEURO Imaging 05/23/2015 10:49 EDT documented as of this encounter Visit Diagnoses Not on filedocumented in this encounter Care Teams Plodder Operator Relationship Specialty Start Date End Date Eliza Thomson MD [address] [place] [address] [place] [phone] PCP - General 05/05/15 05/31/15 documented as of this encounter
--- OUTSIDE RECORDS SUMMARY | 2023-12-04 17:51 | XMS_ITS | Encounter Summary ---
Author Organization [facility] Address [address] [place] [address] Care Team Providers Care Pediatric Cns Name Role Phone Beny Perea MD Primary Care Provider [phone] Mallika Barillas APRN Primary Care Provider [phone] Encounter Details Date Type Department Care Team (Late st Contact Info) Description 09/04/2021 Lab Requisition [facility] Pathology & Laboratory Medicine - [facility] [address] [place] [address] Outr Resulting Lab, Provider Social History Tobacco [...] Associated Diagnosis Comments PSA TOTAL, DIAGNOSTIC Routine 09/03/2021 15:55 EDT documented in this encounter Results * PSA TOTAL, DIAGNOSTIC (09/03/2021 15:55 EDT) PSA 2.5 <=3.5 ng/mL 09/04/2021 18:55 EDT [facility] Blood VENOUS BLOOD / Unknown 09/03/2021 15:55 EDT 09/04/2021 16:46 EDT Narrative [facility] - 09/04/2021 18:55 EDT NOTE: Serum PSA concentration should not be interpreted as absolute evidence for the presence or absence of malignant disease. Assayed on Siemens [employer] XPT using chemiluminescent technology.??Values obtained by using different assay methods cannot be used interchangeably. Provider Outr Resulting Lab CHEMISTRY & BLOOD GAS ORDERABLES [facility] [address] [place] [address] documented in this encounter Visit Diagnoses Not on filedocumented in this encounter Care Teams Pediatric Cns Relationship Specialty Start Date End Date Beny Perea MD PCP - General 06/01/15 10/21/21 Mallika Barillas APRN [address] [place] [phone] PCP - General Family Medicine - Primary Care 10/22/21 documented as of this encounter
--- OUTSIDE RECORDS SUMMARY | 2023-12-04 17:51 | XMS_ITS ---
Author Organization Unknown Address [address] [place] [phone] Phone Care Team Providers Care Machine Molder Name Role Phone RED CARUSO Attending Unavailable Social History Type Status Start Date End Date Code Code Syst em Smoking History Never smoker (Never Smoked) [id number] SNOMED CT Sex Male Hospital Discharge Instructions Should you have any questions prior to discharge, please contact a member of your healthcare team. If you have left the hospital and have any questions, please contact your primary care physician. Reason For Referral No Data Found Plan of Treatment No Data Found Encounters Encounter Diagnosis Start Date Code Code Sys tem Impingement syndrome of right shoulder 09/27/2021 SNOMED-CT Personal Care Team Section Performer Name Performer Role Active Date Inactive Da te
--- OUTSIDE RECORDS SUMMARY | 2023-12-04 17:51 | XMS_ITS | Encounter Summary ---
Author Organization [facility] Address [address] [place] [address] Care Team Providers Care Sales Representative Public Utilities Name Role Phone Mallika Barillas APRN Primary Care Provider [phone] Encounter Details Date Type Department Care Team (Late st Contact Info) Description 12/04/2023 Lab Requisition [facility] Pathology & Laboratory Medicine - [facility] [address] [place] [address] Outr Resulting Lab, Provider Social History Tobacco [...] as of this encounter Plan of Treatment Scheduled Orders Name Type Priority Associated Diagnoses Orde r Schedule PSA TOTAL, DIAGNOSTIC Lab Routine Ord ered: 12/04/2023 documented as of this encounter Visit Diagnoses Not on filedocumented in this encounter Care Teams Sales Representative Public Utilities Relationship Specialty Start Date End Date Mallika Barillas APRN [address] [place] [phone] PCP - General Family Medicine - Primary Care 10/22/21 documented as of this encounter
--- OUTSIDE RECORDS SUMMARY | 2023-12-04 17:51 | XMS_ITS | Encounter Summary ---
Author Organization [facility] Address [address] [place] [address] Care Team Providers Care World History Teacher Name Role Phone Janeth Barillasily Felisha ELMORE Primary Care Provider [phone] Encounter Details Date Type Department Care Team (Late st Contact Info) Description 2022 Lab Requisition [facility] Pathology & Laboratory Medicine - [address] [address] Outr Resulting Lab, Provider Social History Tobacco [...] Associated Diagnosis Comments PSA TOTAL, DIAGNOSTIC Routine 09/17/2022 13:20 EDT documented in this encounter Results * PSA TOTAL, DIAGNOSTIC (09/17/2022 13:20 EDT) PSA 2.4 <=3.5 ng/mL 2022 18:48 EDT [facility] Blood VENOUS BLOOD / Unknown 09/17/2022 13:20 EDT 2022 17:32 EDT Narrative [facility] - 2022 18:48 EDT NOTE: Serum PSA concentration should not be interpreted as absolute evidence for the presence or absence of malignant disease. Assayed on Siemens [employer] XPT using chemiluminescent technology.??Values obtained by using different assay methods cannot be used interchangeably. Provider Outr Resulting Lab CHEMISTRY & BLOOD GAS ORDERABLES [facility] [address] [place] [address] documented in this encounter Visit Diagnoses Not on filedocumented in this encounter Care Teams World History Teacher Relationship Specialty Start Date End Date Mallika Barillas APRN [address] [place] [phone] PCP - General Family Medicine - Primary Care 10/22/21 documented as of this encounter
--- OUTSIDE RECORDS SUMMARY | 2023-12-04 17:51 | XMS_ITS | Encounter Summary ---
Author Organization [facility] Address [address] [place] [address] Care Team Providers Care Conveyor Feeder Offbearer Name Role Phone Eliza Thomson MD Primary Care Provider [phone] Encounter Details Date Type Department Care Team (Late st Contact Info) Description 05/10/2015 Results Only Imaging [facility] [phone] Unknown, Provider, Social History Tobacco Use Types Packs/Day Years Used Date Smoking Tobacco: Never Assessed Sex and Gender Information Value Date Recorded Sex Assigned at Not on file Gender Identity Male 10/22/2021 13:27 EDT Sexual Orientation Not on file documented as of this encounter Plan of Treatment Pending Results Name Type Priority Associated Diagnoses Date /Time OUTSIDE IMAGES - MR NEURO Imaging 05/10/2015 11:59 EDT documented as of this encounter Visit Diagnoses Not on filedocumented in this encounter Care Teams Conveyor Feeder Offbearer Relationship Specialty Start Date End Date Eliza Thomson MD [address] [place] [address] [place] [phone] PCP - General 05/05/15 05/31/15 documented as of this encounter
--- OUTSIDE RECORDS SUMMARY | 2023-12-04 17:51 | XMS_ITS | Encounter Summary ---
Author Organization [facility] Address [address] [place] [address] Care Team Providers Care Central Service Supply Distributor Name Role Phone Eliza Thomson MD Primary Care Provider [phone] Encounter Details Date Type Department Care Team ([facility] st Contact Info) Description 05/26/2015 Results Only [facility] [phone] Jamila Wiley, STENCIL PRINTER [address] [place], [place] [id number] Social History Tobacco Use Types Packs/Day Years Used Date Smoking Tobacco: Never Assessed Sex and Gender Information Value Date Recorded Sex Assigned at Not on file Gender Identity Male 10/22/2021 13:27 EDT Sexual Orientation Not on file documented as of this encounter Plan of Treatment Not on file documented as of this encounter Procedures Procedure Name Priority Date/Time Associated Diagnosis Comments SURGICAL PATHOLOGY Routine 05/26/2015 10 :19 EDT documented in this encounter Results * SURGICAL PATHOLOGY (05/26/2015 10:19 EDT) Pathology Report: SURGICAL PATHOLOGY REPORT Reports generated via electronic interface contain original data; however they are lacking the format of the original report. Caution should be taken when reading/interpret ing unformatted reports. Name: ? CHACHA KISER ? Accession #: ? [id number] ? : ? 1960 (Age: 54) ??M ? Collect Date: ? 05/26/2015 ? Location: ? [facility] ? Receive Date: ? 05/27/2015 ? Provider: JAMILA WILEY NP Copy to: KAITLIN QUINTANA MD ? Final Pathologic Diagnosis: SKIN OF CHIN, LEFT, SHAVE BIOPSY: - Angiofibroma. Document reviewed and electronically signed by: ELEAZAR THOMAS MD Report ??Date: 05/30/2015 13:33 By the signature above, the attending physician certifies that he/she has personally conducted a gross and/or microscopic examination of the described specimens and rendered or confirmed the above diagnosis. Specimen(s) Received: Left chin Clinical History: Red papule with scale; DDx: Neoplasm of uncertain behavior vs IDN vs AN vs wart vs fibroma vs ?; clinical diagnosis code: ??D48.5 Gross Description: ? Received in formalin labelled with proper patient identification (initials G, T) and left chin is a shave biopsy of pink-paige skin (0.3 x 0.2 x 0.1 cm). There is an eccentric paige-red papule that measures 0.2 x 0.2 x 0.1 cm. The margins are inked blue. The specimen is submitted intact in 1. [place] 05/29/2015 1:[address] [facility] 05/26/2015 10:1 9 EDT 05/27/2015 10:19 EDT Jamila Wiley NP PATHOLOGY ORDERABLES [facility] [address] [place] [address] documented in this encounter Visit Diagnoses Not on filedocumented in this encounter Care Teams Central Service Supply Distributor Relationship Specialty Start Date End Date Eliza Thomson MD [address] [place] [phone] PCP - General 05/05/15 05/31/15 documented as of this encounter
--- OUTSIDE RECORDS SUMMARY | 2023-12-04 17:51 | XMS_ITS ---
Author Organization Unknown Address [address] [place] [id number] Phone Care Team Providers Care Government Operations Consultant Name Role Phone MANDY Saucedo Attending Unavailable RED CARUSO Primary Unavailable Results XR HIPS BILAT 3V OR 4V - Com pleted: 01/03/2022 12:06 LOINC: [facility] [place], [place] [address] PACS MOLECULAR BIOLOGY PROFESSOR REPORT Patient Name: CHACHA KISER MRN: Sex: : Age: [id number] M [id number] Account: Accession: Admit: StayType: [id number] 01/03/2022 CLINIC Ordered: Order ID: Submitted: Ordering Provider: 01/03/2022 10:32 [id number] ILSA POE Completed: Technologist: Resulted: 01/03/2022 12:06 SAYRA 01/03/2022 18:31 Study Description: XR HIPS BILAT 3V OR 4V Study Reason: bilat hip pain 2D digital imaging was performed. COMPARISON: Prior x-rays 07/10/2020 FINDINGS: No evidence of pelvic nor hip fracture. There is mild narrowing of the superior aspect of the bilateral hip joint spaces, slightly more so on the right side.. Less narrowing evident on the lateral view. On lateral view of the right hip there is a bony excrescence at the femoral head-neck junction anteriorly; lateral view of the opposite hip reveals a smaller similar finding. Bone density normal. No osseous lesions. IMPRESSION: Femoral neck findings, more prominent on the right side as described above. Very mild joint space narrowing. Report Digitally Signed by Iain Collins on 01/03/2022 06:31 PM EST Social History Type Status Start Date End Date Code Code Syst em Smoking History Never smoker (Never Smoked) [id number] SNOMED CT Sex Male Hospital Discharge Instructions Should you have any questions prior to discharge, please contact a member of your healthcare team. If you have left the hospital and have any questions, please contact your primary care physician. Reason For Referral No Data Found Plan of Treatment No Data Found Encounters Encounter Diagnosis Start Date Code Code Sys tem Joint derangement 01/03/2022 [id number] [facility] Personal Care Team Section Performer Name Performer Role Active Date Inactive Da te
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
--- OUTSIDE RECORDS SUMMARY | 2023-12-04 17:51 | XMS_ITS | Data Portability ---
Author Organization [place] - [facility] [place] [address] Assessment No assessment recorded. Plan of Treatment Reminders Order Date Submit Date Provider Last Modified By Organization Details Last Modified Time Details Appointments FASTING LABS 2023 07:40A M [place] [facility] Not available Not available Not available Annual Wellness Exam 40 2023 01:00P M RENETTA ELI Not available Not available Not available Lab lipid panel, serum 2023 [facility] (Registration ), [address] [place] [address] [place], [address], 12/04/2023 07:55:18 CMP, serum or plasma 2023 [facility] (Registration ), [address] [place] [address] [place], [address], 12/04/2023 07:55:18 PSA, serum or plasma 2023 [facility] (Registration ), [address] [place] [address] [place], [address], 12/04/2023 08:00:57 Referral None recorded . Procedures [...] Address Organization Details Recorded Time Neck pain 11010624 Completed 201504/30/2015 03/01/19 16 - Comments only - Cynthia Vazquez INSURANCE PLAN SPECIALIST - ice, or heat, IB; cspine xray and f/u per results Problem Code: M54.2; Problem Code Type: ICD-10; Not Available [facility] 3 04:40:32 Neck pain 90698010 Active 2015 Problem Code: M54.2; Problem Code Type: ICD-10; Not Available [facility] 3 04:40:32 Screenin g for malignan t neoplasm of colon Completed 202005/01/2020 Problem Code: Z12.11; Problem Code Type: ICD-10; Not Available [facility] 3 04:40:32 Adult health examinat ion Active 202009/04/19 22 - Comments only - Mallika Barillas APRN - #[facility], adult. -CRC screenin 08/2020 - TAs, 3yr [...] goes q6mo -Adv Dir: not reviewed today -Foxing Closer ed on healthy diet, exercise , and avoidanc e of etoh/ill icits. -RTC in 12mo, sooner prn Problem Code: Z00.00; Problem Code Type: ICD-10; Not Available [facility] 3 04:40:33 Hip pain 84279262 Active 202009/04/19 22 - Comments only - Mallika Eran DESKTOP SUPPORT TECHNICIAN - bilat, R>L -xray 1yr ago showed mild-mod erate degenera tive changes. No improvem ent w/ PT -referra l to ortho placed today Problem Code: M25.559; Problem Code Type: ICD-10; Not Available [facility] 3 04:40:33 Benign paroxysm al position al vertigo 948205912 Active 202004/13/19 21 - Comments only - Mallika Eran DESKTOP SUPPORT TECHNICIAN - -referra l to PT placed today Problem Code: H81.10; Problem Code Type: ICD-10; Not Available [facility] 3 04:40:33 Ventricu lar prematur e complex 751417977 Active 202004/13/19 21 - Comments only - Mallika Eran DESKTOP SUPPORT TECHNICIAN - -discuss ed benign nature of PVCs, could get Zip Patch if pt is concerne d. Problem Code: I49.3; Problem Code Type: ICD-10; Not Available [facility] 3 04:40:33 Delay when starting to pass urine 7430456 Active 202009/04/19 22 - Comments only - Mallika Eran DESKTOP SUPPORT TECHNICIAN - -recheck PSA today. Did discuss medicati on but he was not inclined to start a medicati on at this time -f/u pending results of PSA Problem Code: R39.11; Problem Code Type: ICD-10; Not Available [facility] 3 04:40:33 History of polyp of colon 088963920 Active 2020 Problem Code: Z86.010; Problem Code Type: ICD-10; Not Available [facility] 3 04:40:33 Pain of right shoulder joint 18535971344 459981 Active 202109/04/19 22 - Comments only - Mallika Barillas APRN - -suspect impingem ent syndrome -referra l for PT placed today -f/u if no improvem ent or if sx worsen Problem Code: M25.511; Problem Code Type: ICD-10; Not Available [facility] 3 04:40:33 Hyperlip idemia 70587096 Active 202111/20/19 22 - Comments only - Mallika Barillas APRN - -lipids 08/2021: Total 230, HDL 55, [...] E78.5; Problem Code Type: ICD-10; Not Available [facility] 3 04:40:33 Screenin g for malignan t neoplasm of prostate Completed 202110/03/2021 Problem Code: Z12.5; Problem Code Type: ICD-10; Not Available [facility] 3 04:40:33 Chronic cough 51612818 Active 202109/04/19 22 - Comments only - Mallika Barillas APRN - -low-ris k for lung malignan cy as pt is a lifetime non-smok er. I did offer a CXR today but he declined , will call if sx worsen/p ersist Problem Code: R05.3; Problem Code Type: ICD-10; Not Available [facility] 3 04:40:34 Palpitat ions 43413679 Active 2022 Problem Code: R00.2; Problem Code Type: ICD-10; Not Available [facility] 3 04:40:34 Screenin g for malignan t neoplasm of prostate Completed 202210/16/2022 Problem Code: Z12.5; Problem Code Type: ICD-10; Not Available [facility] 3 04:40:34 Viral screenin g Completed 201904/13/2020 Problem Code: Z11.59; Problem Code Type: ICD-10; Not Available [facility] 3 04:40:34 Disorder of skin and/or subcutan eous tissue 29311508 Completed 201504/13/2020 Problem Code: L98.9; Problem Code Type: ICD-10; Not Available [facility] 3 04:40:34 Acute upper respirat ory infectio n 28946989 Completed 201704/13/2020 Problem Code: J06.9; Problem Code Type: ICD-10; Not Available [facility] 3 04:40:34 Pain of left knee joint 12796011277 4107 Completed 202009/03/2021 Problem Code: M25.562; Problem Code Type: ICD-10; Not Available [facility] 3 04:40:34 Problem Notes None recorded. Procedures Surgical History None recorded. Imaging Results Imaging Date Name Status [facility] by [facility] Details LastModified Time 09/05/2022 imaging/diag nostic result completed Information not available 11/10/2023 00:51:36 03/11/2022 XR, shoulder, 2 or more view completed Information not available 11/10/2023 00:52:15 10/25/2021 imaging/diag nostic result completed Information not available 11/10/2023 00:52:16 07/10/2020 imaging/diag nostic result completed Information not available 11/10/2023 00:52:20 01/03/2022 imaging/diag nostic result completed Information not available 11/10/2023 00:52:21 Procedure Notes None recorded. Medical Equipment None Reported. [...] [email or web address] Not available 2022 03:52:25 Notes:*Problem: Mother: Aliolga lidia e breast cancer Father: Alive HTN, heart [...] preservative free, adsorbed 07/23/2019 completed Not Available [facility] 01/03/2023 04:53:25 Tdap 03/01/2010 completed Not Available [facility] 04:53:25 zoster recombinant 04/13/2020 completed Not Available [facility] 01/03/2023 04:53:25 zoster recombinant 07/10/2020 completed Not Available [facility] 01/03/2023 04:53:25 Hep A, unspecified formulation 03/01/2010 completed Not Available [facility] 01/03/2023 04:53:25 Hep A, unspecified formulation 08/31/2010 completed Not Available [facility] 01/03/2023 04:53:25 influenza, unspecified formulation 04/12/2013 completed Not Available [facility] 01/03/2023 04:53:26 influenza, unspecified formulation 12/18/2019 completed Not Available [facility] 01/03/2023 04:53:26 Past Encounters Encounter ID Performer Location Encounter Start Date Encounter Closed Date Diagnosis/Indication Diagnosis SNOMED-CT Code Diagnosis ICD10 Code [id number] DONA RUFF, RN [address] [address] 12/04/2023 07:40:14 12/04/2023 08:27:07 Benign prostatic hyperplasia 048742329 N40.0 Hyperlipidemia 34046759 E78.5 Adult heal th examination 573071694 Z00.00 Health Concerns Section Related Observation LastModified by Organization Detai ls LastModified Time None Recorded Concern Status LastModified by Organization Details LastModified Time None Recorded Advance Directives Directive None Recorded Payers Encounter Date Sequence Insurance Name Policy Number Policy Wong Covered Member ID Wong Member ID Guarantor Name 12/04/2023 1 [place]: [employer] ([facility]) Madhav Sainz [id number] Madhav Sainz
[2023-12-04 17:58] LABS: ALT 32 U/L (16-63); AST 25 U/L (15-37); Alkaline Phosphatase 79 U/L (46-116); Anion Gap 7.8 mmol/L (3-11); BUN 14 mg/dL (7-18); Bilirubin, Total 1.71 mg/dL (0.2-1.0); CO2 28.2 mmol/L (21.0-32.0); Calcium 8.8 mg/dL (8.5-10.1); Calculated LDL 79 mg/dL (<100); Chloride 109 mmol/L (98-107); Cholesterol 145 mg/dL (<200); Estimated GFR 85.63 (mL/min/1.73m2); Glucose 89 mg/dL (74-106); HDL Cholesterol 48 mg/dL (40-60); Potassium 4.7 mmol/L (3.5-5.1); Sodium 145 mmol/L (136-145); Total Protein 7.2 g/dL (6.4-8.2); Triglyceride 92 mg/dL (<150)
[2023-12-04 22:34] LABS: PSA, Diagnostic 3.5 ng/mL (<=4.5)
== END 2023-12-04 17:31 | disposition home or self-care (01) ==
LOC: NCHCN 17:30
PROVIDERS: PCP Family Medicine; Visit Provider Family Medicine
DX: E78.5 Hyperlipidemia, unspecified (principal); Z00.00 Encounter for general adult medical examination without abnormal findings; N40.0 Benign prostatic hyperplasia without lower urinary tract symptoms
CPT/HCPCS: 80053; 80061; 84153

== ENCOUNTER 2023-12-09 17:19 | Outpatient (REF) | payer BC, SELFPAY ==
[2023-12-09 21:30] LABS: Bilirubin, Direct 0.2 mg/dL (0.0-0.2)
== END 2023-12-09 17:20 | disposition home or self-care (01) ==
LOC: NCHCN 17:19
PROVIDERS: PCP Family Medicine; Visit Provider Family Medicine
DX: R17 Unspecified jaundice (principal)
CPT/HCPCS: 82248

== ENCOUNTER 2024-12-13 09:38 | Outpatient (REF) | payer BC, SELFPAY ==
[2024-12-13 15:07] LABS: ALT 35 U/L (16-63); AST 26 U/L (15-37); Albumin 3.8 g/dL (3.4-5.0); Alkaline Phosphatase 73 U/L (46-116); Anion Gap 7.7 mmol/L (3-11); BUN 19 mg/dL (7-18); Bilirubin, Total 2.0 mg/dL (0.2-1.0); CO2 27.3 mmol/L (21.0-32.0); Calcium 8.5 mg/dL (8.5-10.1); Calculated LDL 63 mg/dL (<100); Chloride 107 mmol/L (98-107); Cholesterol 126 mg/dL (<200); Estimated GFR 100.06 (mL/min/1.73m2); Glucose 102 mg/dL (74-106); HDL Cholesterol 56 mg/dL (>or=40); Potassium 3.9 mmol/L (3.5-5.1); Sodium 142 mmol/L (136-145); Total Protein 7.1 g/dL (6.4-8.2); Triglyceride 37 mg/dL (<150)
[2024-12-14 22:09] LABS: PSA, Screening 2.8 ng/mL (<=4.5)
[2024-12-15 10:21] LABS: Hepatitis A Antibody IgM Negative (Negative); Hepatitis C Ab w Rflx HCV PCR Negative (Negative)
== END 2024-12-13 09:39 | disposition home or self-care (01) ==
LOC: NCHCN 09:38
PROVIDERS: PCP Family Medicine; Visit Provider Family Medicine
DX: E78.5 Hyperlipidemia, unspecified (principal); Z12.5 Encounter for screening for malignant neoplasm of prostate; R17 Unspecified jaundice
CPT/HCPCS: 80053; 80061; 84153; 86704; 86709; 86803; 87340

== ENCOUNTER 2025-02-18 14:54 | Outpatient (REF) | payer BC, SELFPAY ==
[2025-02-18 21:04] LABS: Abs Immature Grans 0.02 10^3/uL (0.0-0.06); HCT 42.4 % (40.0-50.0); HGB 15.0 g/dL (13.5-17.5); Immature Grans % 0.4 %; MCH 31.3 pg (27.0-33.0); MCHC 35.4 % (32.0-36.0); MCV 88 fL (80-95); MPV 9.2 fL (8.0-11.0); Platelet Count 195 10^3/uL (130-400); RBC 4.80 10^6/uL (4.36-5.78); RDW 12.0 % (11.8-14.1); RDW-SD 38.5 fL; WBC 5.60 10^3/uL (4.4-10.8)
[2025-02-18 21:45] LABS: RBC Morphology Normal
== END 2025-02-18 14:55 | disposition home or self-care (01) ==
LOC: NCHCN 14:54
PROVIDERS: PCP Family Medicine; Visit Provider Family Medicine
DX: R17 Unspecified jaundice (principal)
CPT/HCPCS: 85025; 85045